=== PATIENT | female | born 1985 | race Caucasian/White ===

== ENCOUNTER → 2016-10-26 | Outpatient (REF) | payer OTHER | LOC: M SFHCLERA 12:14 | PROVIDERS: ATTEND Family Medicine | DX: Z32.00 Encounter for pregnancy test, result unknown (principal) ==

== ENCOUNTER → 2016-11-15 | Outpatient (CLI) | payer OTHER ==
[2016-11-15 10:43] LABS: BASO % 0.4 % (0.0-1.0); EOS # 0.1 10^3/uL (0.0-0.50); EOS % 1.3 % (0.0-3.0); LYMPH # 1.4 10^3/uL (1.5-4.5); LYMPH % 25.2 % (24.0-44.0); MEAN CORPUSCULAR HEMOGLOBIN 31.1 pg (27.0-33.0); MEAN CORPUSCULAR HGB CONC 34.2 g/dl (32.0-36.5); MONO # 0.5 10^3/uL (0.0-0.8); NEUTROPHILS # 3.6 10^3/uL (1.8-7.7); NEUTROPHILS % 64.7 % (36.0-66.0); PLATELET COUNT, AUTOMATED 255 10^3/uL (150-450); RED CELL DISTRIBUTION WIDTH 12.7 % (11.5-14.5); WHITE BLOOD COUNT 5.6 10^3/uL (4.0-10.0)
[2016-11-15 11:08] LABS: HBsAg Prenatal NEGATIVE (NEGATIVE)
== END ==
LOC: M LAB 08:47
PROVIDERS: ATTEND Obstetrics & Gynecology
DX: Z34.81 Encounter for supervision of other normal pregnancy, first trimester (principal)

== ENCOUNTER → 2017-02-10 | Outpatient (CLI) | payer OTHER ==
--- NOTE | 2017-02-11 06:52 | REP ---
COMPLETE OBSTETRICAL ULTRASOUND: CLINICAL: Anatomical evaluation. COMPARISON: None. FINDINGS: Ultrasound examination demonstrates single live intrauterine in cephalic presentation. motion was identified by the technologist. Placenta is noted posteriorly and grade 1 without evidence for placenta previa or abruption. Amniotic fluid volume is normal. Cervix measures 3.9 cm in length and appears closed. No evidence for nuchal cord. Gestational age by LMP 19 weeks 2 days with estimated date of delivery 07/05/2017. Gestational age by current measurements 19 weeks 6 days with estimated date of delivery 07/01/2017. FHR 153 beats per minute. BPD 4.7 cm 20 weeks 1 day HC 17.0 cm 19 weeks 4 days AC 15.1 cm 20 weeks 2 days FL 3.2 cm 20 weeks 1 day HL 3.0 cm 20 weeks 0 days HC/AC ratio 1.13. Estimated weight 337 grams (80th percentile). Anatomical assessment demonstrates normal cranium, choroid plexus, cavum, cerebellum/posterior fossa, facial features, lungs, diaphragm, stomach, cord insertion/three vessel cord, kidneys/bladder, spine and extremities. Incomplete evaluation of the heart and cardiac ventricular outflow tracts noted. IMPRESSION: Single live intrauterine in cephalic presentation demonstrating appropriate interval growth. Limited evaluation of the heart and cardiac ventricular outflow tracts noted. Remainder of the anatomical assessment is complete and normal. Signed by Jeovany Miller MD 02/12/2017 08:43 A
== END ==
LOC: M SMT 10:51
PROVIDERS: ATTEND Obstetrics & Gynecology
DX: O34.212 Maternal care for vertical scar from previous cesarean delivery (principal); Z3A.19 19 weeks gestation of pregnancy

== ENCOUNTER → 2017-03-02 | Outpatient (CLI) | payer OTHER | LOC: M SMT 09:50 | DX: Z34.82 Encounter for supervision of other normal pregnancy, second trimester (principal) ==

== ENCOUNTER → 2017-04-09 | Outpatient (CLI) | payer OTHER ==
[2017-04-09 17:52] LABS: GLUCOSE CHALLENGE TEST 1 HOUR 134 MG/DL (LESS THAN 140)
[2017-04-09 17:56] LABS: BASO % 0.1 % (0.0-1.0); EOS # 0.1 10^3/uL (0.0-0.50); EOS % 0.9 % (0.0-3.0); HEMATOCRIT 35.9 % (36.0-47.0); HEMOGLOBIN 11.9 g/dl (12.0-16.0); IMMATURE GRANULOCYTE % 0.7 % (0-3.0); LYMPH # 1.2 10^3/uL (1.5-4.5); MEAN CORPUSCULAR HEMOGLOBIN 31.2 pg (27.0-33.0); MEAN CORPUSCULAR HGB CONC 33.1 g/dl (32.0-36.5); MEAN CORPUSCULAR VOLUME 94.2 fl (80.0-96.0); MONO # 0.4 10^3/uL (0.0-0.8); MONO % 5.9 % (0.0-5.0); NEUTROPHILS # 5.2 10^3/uL (1.8-7.7); NEUTROPHILS % 75.4 % (36.0-66.0); PLATELET COUNT, AUTOMATED 196 10^3/uL (150-450); RED BLOOD COUNT 3.81 10^6/uL (4.00-5.40); RED CELL DISTRIBUTION WIDTH 12.8 % (11.5-14.5); WHITE BLOOD COUNT 6.9 10^3/uL (4.0-10.0)
== END ==
LOC: M WUC 11:05
DX: Z34.82 Encounter for supervision of other normal pregnancy, second trimester (principal)

== ENCOUNTER → 2017-04-15 | Outpatient (CLI) | payer OTHER ==
[2017-04-15 08:53] LABS: GLUCOSE, FASTING 79 MG/DL (LESS THAN 95)
[2017-04-15 09:29] LABS: 1 HR GLUCOSE 176 MG/DL (LESS THAN 180)
[2017-04-15 10:31] LABS: 2 HR GLUCOSE 112 MG/DL (LESS THAN 155)
[2017-04-15 11:34] LABS: 3 HR GLUCOSE 126 MG/DL (LESS THAN 140)
== END ==
LOC: M LAB 07:36
DX: Z34.82 Encounter for supervision of other normal pregnancy, second trimester (principal); Z36.89 Encounter for other specified antenatal screening
CPT/HCPCS: 82951

== ENCOUNTER → 2017-04-25 | Outpatient (CLI) | payer OTHER | LOC: M LRY 08:48 | DX: R10.13 Epigastric pain (principal) | CPT/HCPCS: 76705 ==

== ENCOUNTER → 2017-06-08 | Outpatient (REF) | payer OTHER | LOC: M LAB REF 13:00 | DX: Z34.83 Encounter for supervision of other normal pregnancy, third trimester (principal) | CPT/HCPCS: 87081 ==

== ENCOUNTER → 2017-12-30 | Outpatient (REF) | payer OTHER ==
[2018-01-03 15:15] LABS: HPV HYBRID CAPTURE II Negative (Negative)
== END ==
LOC: M LAB REF 14:10
DX: Z12.4 Encounter for screening for malignant neoplasm of cervix (principal)